=== PATIENT | female | born 1945 | race Caucasian/White ===

== ENCOUNTER 2016-11-08 12:20 | Emergency (ER) | payer MEDICARE, OTHER ==
[~2016-11-08 12:20] MED LIST: ASAB PO; B-12 NAS; B12100T PO; BUT/APAP/CAF OR; C5 PO; CLARIT10 PO; COUMADIN3 MG PO; COUMADIN4 MG; COUMADIN7.5 MG PO; D3 PO; DICLOFENAC DR PO; EDARBYCLOR 40-1 EACH PO; EFFEX75 PO; FLEXERIL5 MG PO; LIPITOR10 PO; MAGOX4 PO; P5 PO; PRAVACHOL40 MG PO; PRILO PO; PROVENT20 INH; SYN.05 PO; SYN075 PO; T PO; TENORETIC1 TAB PO; V2 PO; VENTOLIN HFA INH; VOLTAREN1 % TOP
== END 2016-11-08 12:26 | disposition home or self-care (01) ==
LOC: ER 12:20
DX: S91.202A Unspecified open wound of left great toe with damage to nail, initial encounter (principal); J45.909 Unspecified asthma, uncomplicated; I10 Essential (primary) hypertension; Z86.73 Personal history of transient ischemic attack (TIA), and cerebral infarction without residual deficits; E78.5 Hyperlipidemia, unspecified; F32.9 Major depressive disorder, single episode, unspecified; K21.9 Gastro-esophageal reflux disease without esophagitis; Z79.899 Other long term (current) drug therapy; Z79.01 Long term (current) use of anticoagulants; X58.XXXA Exposure to other specified factors, initial encounter
CPT/HCPCS: 99283